=== PATIENT | male | born 1985 ===

== ENCOUNTER 2017-04-09 13:34 | Emergency (ER) | payer OTHER ==
--- NOTE | 2017-04-09 13:49 | EDPHY ---
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 Patient has had pain and swelling in that site since. Does not have any prior injuries. No forearm or proximal arm injury. No numbness or tingling. No crush injury involved. ROS: 10 point Review of Systems is negative except as noted in the HPI. PMH: Denies Social History: [No] smoking, [no] alcohol, [ no recreational drug use] Family History: [non-contributory] Physical Exam: General: Awake, alert, no acute distress Left hand: He has some moderate swelling and tenderness over the thenar eminence. There is mild tenderness in the anatomic snuffbox. He has decreased flexion of his thumb secondary to pain. Sensations intact in the radial, median and ulnar nerve distribution. Capillary refills less than 2 seconds. He has 2+ radial and ulnar pulses. He has no radial or ulnar tenderness. No elbow tenderness. Skin: No rash Constitutional: Initial Vital Signs Temperature (C) 36.5 C 04/09/17 13:40 Heart Rate 89 04/09/17 13:40 Respiratory Rate 16 04/09/17 13:40 Blood Pressure 122/84 H 04/09/17 13:40 O2 Sat (%) 96 04/09/17 13:40 O2 Delivery Mode Room Air Allergies/Adverse Reactions: No Known Allergies Allergy (Unverified 04/09/17 13:50) Home Medications: Medication Instructions Recorded NK [No Known Home Meds] 04/09/17 Medical Decision Making - Diagnostics Imaging Results: Imaging Impressions Hand X-Ray 04/09/17 13:46 Impression: No acute osseous findings. Imaging: I viewed and interpreted images myself ED Course/Re-evaluation: Hand x-rays negative for acute fracture. Patient will be discharged with follow up with workman's Comp. Rest, ice and elevate. Departure - Departure Disposition: Home, Routine, Self-Care Clinical Impression: Hand contusion Condition: Good Instructions: Contusion in Adults (ED) Additional Instructions: Apply ice for 15-20 minutes 3 to 4 times a day. Follow up with workman's Comp in 2-3 days for re-evaluation. You may alternate ibuprofen with acetaminophen as needed for aches and pains. Referrals: Work Comp Referral [facility] [Outside] - As per Instructions
[2017-04-09 13:50] VITALS: BP 122/84; PULSE 89; RESP 16; TEMP 97.7; O2SAT 96
== END 2017-04-09 14:20 | disposition home or self-care (01) ==
LOC: CED 13:34
DX: S60.222A Contusion of left hand, initial encounter (principal); W22.8XXA Striking against or struck by other objects, initial encounter; Y92.69 Other specified industrial and construction area as the place of occurrence of the external cause; Y99.0 Civilian activity done for income or pay; Y93.89 Activity, other specified
CPT/HCPCS: 73130-PO